=== PATIENT | male | born 1955 | race Caucasian/White ===

== ENCOUNTER 2023-04-22 23:43 | Emergency (ER) | payer MEDICARE ==
[~2023-04-22] VITALS: Ht 172.7 cm; Wt 79.5 kg
[~2023-04-22 23:43] MED LIST: TYL3 PO
[2023-04-23 00:02] VITALS: TEMP 98.5
[2023-04-23 00:46] LABS: ANION GAP 9 mmol/L (8-16); CALCIUM, TOTAL 8.7 mg/dL (8.8-10.5); CARBON DIOXIDE 24 mmol/L (22-29); CHLORIDE 104 mmol/L (98-107); CREATININE 0.99 mg/dL (0.60-1.30); GLOMERULAR FILTR. RATE CALC > 60 mL/min (>60); GLUCOSE,RANDOM 99 mg/dL (70-110); POTASSIUM 3.7 mmol/L (3.5-5.1); SODIUM SERUM 137 mmol/L (136-145); UREA NITROGEN, BLOOD 20 mg/dL (7-18)
[2023-04-23 00:48] LABS: COVID AG,FIA SOURCE NASOPHARYNGEAL
[2023-04-23 00:49] LABS: BASOPHILS % (AUTO) 0.8 % (0.0-2.0); EOSINOPHILS % (AUTO) 2.8 % (1.0-6.0); HEMATOCRIT 46.5 % (41-53); HEMOGLOBIN 15.8 g/dL (13.5-17.5); LYMPHOCYTES # (AUTO) 2.1 K/uL (1.0-4.8); LYMPHOCYTES % (AUTO) 19.9 % (22.0-44.0); MEAN CORPUSCULAR HEMOGLOBIN 33.9 pg (26.0-34.0); MEAN CORPUSCULAR VOLUME 100 fL (80-100); MONOCYTES % (AUTO) 9.4 % (2.0-9.0); NEUTROPHILS % (AUTO) 67.1 % (40.0-70.0); PLATELET COUNT (AUTO) 247 K/uL (150-450); RED BLOOD CELL COUNT(AUTO) 4.66 MIL/uL (4.50-5.90); RED CELL DISTRIBUTION WIDTH 12.8 % (11.5-14.5); WHITE BLOOD COUNT (AUTO) 10.5 K/uL (4.5-11.0)
[2023-04-23 00:52] LABS: ALANINE AMINOTRANSFERASE 21 U/L (12-78); ALBUMIN 3.1 g/dL (3.4-5.0); ALKALINE PHOSPHATASE 129 U/L (46-116); ASPARTATE AMINOTRANSFERASE 16 U/L (15-37); BILIRUBIN,TOTAL 0.2 mg/dL (0.1-1.0); TOTAL PROTEIN, SERUM 6.7 g/dL (6.4-8.2)
[2023-04-23 01:04] LABS: TROPONIN I-HIGH SENSITIVITY 1229 ng/L (<76)
[2023-04-23 01:05] LABS: B-TYPE NATRIURETIC PEPTIDE 36 pg/mL (0-100)
[2023-04-23 01:13] LABS: SARS-COV2 (COVID) ANTIGEN,FIA Negative (Negative)
[2023-04-23] MEDS ORDERED: ASPIRIN 81 MG CHEWABLE TABLET PO ONE (01:15)
[2023-04-23] MEDS ORDERED: ONDANSETRON HCL 4 MG/2 ML VIAL IVP PRN ×2 (01:30)
[2023-04-23] MEDS ORDERED: SODIUM CHLORIDE 0.9% 1,600 ML IV ONE (01:30)
[2023-04-23] MEDS ORDERED: AZITHROMYCIN 500 MG/NS 250 ML IV ONE (01:30)
[2023-04-23] MEDS ORDERED: CefTRIAXone 1 GM/DEXTROSE 50 ML IV ONE (01:30)
[2023-04-23] MEDS ORDERED: ACETAMINOPHEN 325 MG TABLET PO PRN ×2 (01:30)
[2023-04-23] MEDS ORDERED: IPRATROPIUM BROMIDE 0.5 MG/2.5 ML NEB SOLUTION NEB PRN (01:30)
[2023-04-23] MEDS ORDERED: ALBUTEROL SULFATE 2.5 MG/0.5 ML NEB SOLUTION NEB PRN (01:30)
[2023-04-23] MEDS ORDERED: ATORVASTATIN CALCIUM 40 MG TABLET PO ONE (01:30)
[2023-04-23 02:25] VITALS: PULSE 100; RESP 25; O2SAT 98
[2023-04-23 02:30] VITALS: PULSE 100; RESP 25; O2SAT 98
[2023-04-23 04:18] VITALS: BP 139/80; PULSE 102; RESP 26
[2023-04-23 05:05] LABS: TROPONIN I-HIGH SENSITIVITY 1168 ng/L (<76)
[2023-04-23] MEDS ORDERED: AZIT250T9 PO (05:06)
[2023-04-23] MEDS ORDERED: ASPIRIN 81 MG CHEWABLE TABLET PO SCH (08:00)
[2023-04-23] MEDS ORDERED: HEPARIN SODIUM,PORCINE 5,000 UNITS/ML VIAL SQ SCH (08:00)
[2023-04-23] MEDS ORDERED: DOCUSATE SODIUM 100 MG CAPSULE PO SCH (09:00)
[2023-04-23] MEDS ORDERED: ATORVASTATIN CALCIUM 40 MG TABLET PO SCH (21:00)
[2023-04-24] MEDS ORDERED: CefTRIAXone 1 GM/DEXTROSE 50 ML IV SCH (01:00)
[2023-04-24] MEDS ORDERED: AZITHROMYCIN 500 MG/NS 250 ML IV SCH (02:00)
== END 2023-04-23 06:19 | disposition left against medical advice (07) ==
LOC: EMS 23:46
DX: J18.9 Pneumonia, unspecified organism (principal); J96.01 Acute respiratory failure with hypoxia; R77.8 Other specified abnormalities of plasma proteins; F17.210 Nicotine dependence, cigarettes, uncomplicated; F15.90 Other stimulant use, unspecified, uncomplicated
CPT/HCPCS: 99291; 96361 ×2; 87426; 80053; 83605; 83880; 84484; 85025; 87040; 84145; 96374; 96375; 94640; 71045; 93005; 36415; J7030; J0456; J0696; 99285

== ENCOUNTER 2024-02-19 01:57 | Emergency (ER) | payer MEDICARE ==
[~2024-02-19] VITALS: Ht 175.3 cm; Wt 76.0 kg
[2024-02-19 02:31] LABS: BASOPHILS % (AUTO) 0.6 % (0.0-2.0); EOSINOPHILS % (AUTO) 2.7 % (1.0-6.0); HEMATOCRIT 47.5 % (41-53); LYMPHOCYTES # (AUTO) 2.2 K/uL (1.0-4.8); LYMPHOCYTES % (AUTO) 20.4 % (22.0-44.0); MEAN CORPUSCULAR HGB CONC 33.7 G/dL (31.0-37.0); MEAN CORPUSCULAR VOLUME 101 fL (80-100); MONOCYTES % (AUTO) 9.5 % (2.0-9.0); NEUTROPHILS # (AUTO) 7.3 K/uL (1.8-7.7); NEUTROPHILS % (AUTO) 66.8 % (40.0-70.0); PLATELET COUNT (AUTO) 282 K/uL (150-450); RED BLOOD CELL COUNT(AUTO) 4.71 MIL/uL (4.50-5.90); RED CELL DISTRIBUTION WIDTH 13.4 % (11.5-14.5); WHITE BLOOD COUNT (AUTO) 10.9 K/uL (4.5-11.0)
[2024-02-19 02:43] LABS: ANION GAP 9 mmol/L (8-16); CALCIUM, TOTAL 8.7 mg/dL (8.8-10.5); CARBON DIOXIDE 24 mmol/L (22-29); CHLORIDE 105 mmol/L (98-107); GLOMERULAR FILTR. RATE CALC > 60 mL/min (>60); GLUCOSE,RANDOM 104 mg/dL (70-110); POTASSIUM 3.9 mmol/L (3.5-5.1); SODIUM SERUM 138 mmol/L (136-145); UREA NITROGEN, BLOOD 19 mg/dL (7-18)
[2024-02-19 02:48] LABS: CREATINE KINASE, TOTAL ONLY 42 U/L (39-308)
[2024-02-19 02:57] LABS: ALCOHOL, BLOOD (SERUM) < 3 mg/dL (0-10)
[2024-02-19 02:59] LABS: TROPONIN I-HIGH SENSITIVITY 221 ng/L (<76)
[2024-02-19 03:11] VITALS: TEMP 97.8
[2024-02-19] MEDS: ASPIRIN 325 MG TABLET PO ONE (03:15)
[2024-02-19 03:25] LABS: PH,URINE DRUG SCREEN 5.5 (5.0-8.0)
[2024-02-19 03:32] LABS: ALCOHOL, URINE DRUG SCREEN NEGATIVE (NEGATIVE); AMPHET/METH SCREEN,URINE POSITIVE (NEGATIVE); BARBITURATE SCREEN, URINE NEGATIVE (NEGATIVE); BENZODIAZEPINES SCREEN,URINE NEGATIVE (NEGATIVE); CANNABINOID SCREEN,URINE NEGATIVE (NEGATIVE); COCAINE SCREEN,URINE NEGATIVE (NEGATIVE); METHADONE SCREEN, URINE NEGATIVE (NEGATIVE); OPIATE SCREEN,URINE NEGATIVE (NEGATIVE); PHENCYCLIDINE SCREEN,URINE NEGATIVE (NEGATIVE)
[2024-02-19] MEDS: FUROSEMIDE 40 MG/4 ML VIAL IVP ONE (03:34)
[2024-02-19] MEDS: NITROGLYCERIN 2% (1 GM=INCH) OINTMENT PACKET TP ONE (03:35)
[2024-02-19] MEDS: METOPROLOL TARTRATE 25 MG TABLET PO ONE (03:42)
[2024-02-19 03:57] VITALS: BP 124/92; PULSE 100; RESP 10
[2024-02-19 03:57] LABS: TROPONIN I-HIGH SENSITIVITY 225 ng/L (<76)
== END 2024-02-19 08:12 | disposition short-term general hospital (02) ==
LOC: EMS 01:57
DX: I21.4 Non-ST elevation (NSTEMI) myocardial infarction (principal); F15.10 Other stimulant abuse, uncomplicated; I42.9 Cardiomyopathy, unspecified; F17.210 Nicotine dependence, cigarettes, uncomplicated; I11.0 Hypertensive heart disease with heart failure; I50.9 Heart failure, unspecified; Z79.899 Other long term (current) drug therapy
CPT/HCPCS: 99285; 96374; 71045; 80048; 82550; 84484; 85025; 36415; 93005; 80307; G0480; J1940